=== PATIENT | male | born 1955 | race Caucasian/White ===

== ENCOUNTER → 2017-08-01 | Outpatient (CLI) | payer OTHER ==
--- NOTE | 2017-08-01 22:29 | MR ---
EXAMINATION TYPE: MR lumbar spine wo con DATE OF EXAM: 08/01/2017 COMPARISON: MRI lumbar spine August 31, 2009. CT abdomen and pelvis November 11, 2010. HISTORY: Lumbago per order. Generalized low back pain since 1994 per patient. TECHNIQUE: Multiplanar, multisequence imaging of the lumbar spine is performed without IV contrast. FINDINGS: Sagittal images of the lumbar spine show vertebral body heights and alignment to remain sat isfactory. There is persistent multilevel disc desiccation increased in severity from prior MRI. Ther e is mild to moderate disc space narrowing more prominent L4-L5 level versus prior MRI. There is hete rogeneous increased T1 and T2 signal consistent with Modic type II degenerative change involving ante rior L4-L5 endplate. Posterior disc herniation is seen at this level on sagittal images otherwise papo tebral body heights and disc space heights are fairly well-maintained. The conus medullaris is normal in position and signal ending at T12-L1 level. Axial images show the T12-L1 level to remain within normal limits. Axial images at L1-L2 and L2-L3 levels show mild facet degenerative changes bilaterally but spinal ca nal is preserved and the bilateral neural foramina are patent. Axial images at L3-L4 level show moderate facet degenerative changes and ligamentum flavum hypertroph y causing mild mass effect on the posterior lateral thecal sac. Bilateral neural foramina are patent. Axial images at L4-L5 level moderate to advanced facet degenerative changes and ligament flavum hyper trophy effacing the posterior lateral thecal sac. There is moderate broad-based disc bulge effacing t he anterior thecal sac. There is moderate bilateral neural foraminal narrowing at this level identifi ed. Axial images at L5-S1 levels show [id number] facet degenerative changes bilaterally. There is s mall central disc protrusion seen but the spinal canal is preserved. Bilateral neural foramina are pa tent. Left kidney is not visualized, artifact from surgical clips noted. IMPRESSION: Some multilevel degenerative changes in the lumbar spine as detailed above most prominent at L4-L5 level.
== END | disposition home or self-care (01) ==
LOC: RADMRIMAIN 19:25
PROVIDERS: ATTEND Psychiatry & Neurology Neurology
DX: M51.36 Other intervertebral disc degeneration, lumbar region (principal); M51.26 Other intervertebral disc displacement, lumbar region
CPT/HCPCS: 72148

== ENCOUNTER → 2020-03-06 | Outpatient (CLI) | payer MEDICAID ==
--- NOTE | 2020-03-09 09:06 | US ---
EXAMINATION TYPE: US abdomen complete DATE OF EXAM: 03/06/2020 COMPARISON: None CLINICAL HISTORY: 64-year-old male R10.84 Generalized abdominal pain. TECHNIQUE: Multiple sonographic images of the abdomen are obtained. FINDINGS: Residential Monitor notes: Difficult and limited exam due to overlying bowel gas EXAM MEASUREMENTS: Liver Length: 15.3 cm Gallbladder Wall: 0.25 cm CBD: 0.3 cm Spleen: 6.9 cm Right Kidney: 11.3 x 6.1 x 6.2 cm Left Kidney: Surgically absent Pancreas: Obscured by bowel gas Liver: wnl as visualized Gallbladder: wnl Evidence for sonographic Buckner's sign: No CBD: wnl as visualized Spleen: Normal size, limited visualization. Right Kidney: No hydronephrosis or masses seen. Possible stone visualized measuring 0.7 cm Left Kidney: Surgically absent Upper IVC: wnl Abd Aorta: Obscured by bowel gas, visualized portions wnl IMPRESSION: Technically limited exam due to overlying bowel gas. No gallstones or ancillary findings of acute cho lecystitis. Left kidney surgically absent. Possible 7 mm right renal calculus without hydronephrosis.
== END | disposition home or self-care (01) ==
LOC: RADUSWWP 15:56
PROVIDERS: ATTEND Family Medicine
DX: R10.84 Generalized abdominal pain (principal); Z90.5 Acquired absence of kidney
CPT/HCPCS: 76700

== ENCOUNTER → 2020-05-26 | Outpatient (CLI) | payer MEDICAID ==
[2020-05-26 07:45] LABS: HCT 37.8 % (39.0-53.0); HGB 13.1 gm/dL (13.0-17.5); MCH 30.5 pg (25.0-35.0); MCHC 34.7 g/dL (31.0-37.0); MCV 87.9 fL (80.0-100.0); Mean Platelet Volume 7.2; Platelet Count 180 k/uL (150-450); RDW 12.8 % (11.5-15.5); WBC 7.1 k/uL (3.8-10.6)
[2020-05-26 10:52] LABS: African American GFR (CKD) 67.8 (60.0-200.0); Albumin/Globulin Ratio 1.54 (1.60-3.17); Anion Gap 8.1 mmol/L (4.00-12.00); BUN/Creat Ratio 16.15 Ratio (12.00-20.00); Calcium 9.4 mg/dL (8.7-10.3); Carbon Dioxide 28.9 mmol/L (21.6-31.8); Globulin 2.6 g/dL (1.6-3.3); Non-African American GFR(CKD) 58.5 (60.0-200.0); Potassium 4.9 mmol/L (3.5-5.5); Total Bilirubin 0.2 mg/dL (0.3-1.2); Total Protein 6.6 g/dL (6.2-8.2)
[2020-05-26 11:00] LABS: T4, Free (Free Thyroxine) 1.2 ng/dL (0.80-1.80)
[2020-05-26 11:55] LABS: Folate, Serum 10.6 ng/mL
== END | disposition home or self-care (01) ==
LOC: LABWHC1 05-19 09:46
PROVIDERS: ATTEND Nurse Practitioner Family
DX: E55.9 Vitamin D deficiency, unspecified (principal); R41.3 Other amnesia
CPT/HCPCS: 36415; 80053; 82306; 82607; 82746; 83090; 84439; 84443; 84481; 85027

== ENCOUNTER → 2020-11-19 | Outpatient (CLI) | payer OTHER ==
[2020-11-19 12:21] LABS: Anti-Smith Ab Interp NEGATIVE (NEGATIVE); Cyclic Citrull Pep IgG Unit <0.5 U/mL; Cyclic Citrullinated Pep IgG NEGATIVE (NEGATIVE); DNA Double-Stranded NEGATIVE (NEGATIVE); JO-1 IgG Antibody <0.2 AI; Scleroderma SC-70 Ab <0.2 AI
== END | disposition home or self-care (01) ==
LOC: LABWHC1 06:56
PROVIDERS: ATTEND Psychiatry & Neurology Neurology
DX: M25.50 Pain in unspecified joint (principal)
CPT/HCPCS: 36415; 83516; 86038; 86200; 86225; 86235